=== PATIENT | female | born 1995 ===

== ENCOUNTER 2022-12-29 14:44 | Inpatient (IN) | payer BC ==
[2022-12-29] MEDS ORDERED: Tranexamic Acid 1,000 MG in Sodium Chloride 0.9% 100 ML IV PRN (20:32)
[2022-12-29] MEDS ORDERED: Methylergonovine 0.2 MG/1 ML Amp IM PRN (20:32)
[2022-12-29] MEDS ORDERED: Sodium Chloride 0.9% 20 ML SDV IV PRN (20:32)
[2022-12-29] MEDS ORDERED: Lidocaine 1% 50 ML MDV INJECT PRN (20:32)
[2022-12-29] MEDS ORDERED: Sodium Chloride 0.9% 2.5 ML Syringe FLUSH PRN (20:32)
[2022-12-29] MEDS ORDERED: Misoprostol 200 MCG Tab PO PRN (20:32)
[2022-12-29] MEDS ORDERED: Ondansetron 4 MG/2 ML SDV IVPUSH PRN (20:32)
[2022-12-29] MEDS ORDERED: Water For Irrigation,Sterile 1,000 ML Container IRR PRN (20:32)
[2022-12-29] MEDS ORDERED: Sodium Chloride 0.9% 10 ML Syringe FLUSH PRN (20:32)
[2022-12-29] MEDS ORDERED: Butorphanol 1 MG/ML SDV IVPUSH PRN (20:32)
[2022-12-29] MEDS ORDERED: Carboprost Tromethamine 250 MCG/1 ML Amp IM PRN (20:32)
[2022-12-29] MEDS ORDERED: Oxytocin/0.9 % Sodium Chloride 30 UNIT/500 ML BAG IV SCH (20:45)
[2022-12-29] MEDS: Lactated Ringers 1,000 ML IV SCH (20:46)
[2022-12-29] MEDS ORDERED: Ampicillin 2 GM in Sodium Chloride 0.9% 100 ML IV ONE (21:00)
[2022-12-30] MEDS: Ampicillin 1 GM in Sodium Chloride 0.9% 50 ML IV SCH ×2 (01:24→05:27)
[2022-12-30] MEDS: Lactated Ringers 1,000 ML IV SCH ×2 (03:46→07:00)
[2022-12-30] MEDS ORDERED: Ropivacaine/PF 400 MG/200 ML PCA ONE (03:52)
[2022-12-30] MEDS ORDERED: ePHEDrine 50 MG/ML SDV IVPUSH PRN (04:09)
[2022-12-30] MEDS ORDERED: Phenylephrine HCl 0.5 MG/5 ML AMP IVPUSH PRN (04:09)
[2022-12-30] MEDS ORDERED: Ropivacaine HCl/PF 400 MG in Premix Bag 1 BAG EPIDUR SCH (04:15)
[2022-12-30] MEDS ORDERED: Witch Hazel Medicated Pads 40/Jar TOP PRN (07:36)
[2022-12-30] MEDS ORDERED: Lanolin 100% Cream 7 GM Tube TOP PRN (07:36)
[2022-12-30] MEDS ORDERED: Bisacodyl 10 MG Supp RECTAL PRN (07:36)
[2022-12-30] MEDS ORDERED: Ibuprofen 400 MG Tab PO PRN (07:36)
[2022-12-30] MEDS ORDERED: Docusate Sodium 100 MG Cap PO PRN (07:36)
[2022-12-30] MEDS ORDERED: Ibuprofen 800 MG Tab PO PRN (07:36)
[2022-12-30] MEDS ORDERED: Benzocaine/Menthol 20%-0.5% Spray 78 GM Cannister TOP PRN (07:36)
[2022-12-30] MEDS ORDERED: Acetaminophen 500 MG Tab PO PRN ×2 (07:36)
== END 2023-01-01 14:20 | disposition home or self-care (01) | DRG 560 ==
LOC: MW.OBCHECK 14:44 → MW.OB 20:32 → OBSVTOIN 12-30 07:14 → MW.OB 12-30 11:24
PROVIDERS: ADMIT Obstetrics & Gynecology Obstetrics; ATTEND Obstetrics & Gynecology Obstetrics
PROC: 10E0XZZ Delivery of Products of Conception, External Approach (ICD-10-PCS; principal; 2022-12-30)
PROC: 3E0R3BZ Introduction of Anesthetic Agent into Spinal Canal, Percutaneous Approach (ICD-10-PCS; 2022-12-30)
PROC: 00HU33Z Insertion of Infusion Device into Spinal Canal, Percutaneous Approach (ICD-10-PCS; 2022-12-30)
DX: O24.12 Pre-existing type 2 diabetes mellitus, in childbirth (principal); O99.284 Endocrine, nutritional and metabolic diseases complicating childbirth; O99.824 Streptococcus B carrier state complicating childbirth; E03.9 Hypothyroidism, unspecified; O70.0 First degree perineal laceration during delivery; O99.214 Obesity complicating childbirth; E66.01 Morbid (severe) obesity due to excess calories; Z3A.39 39 weeks gestation of pregnancy; Z37.0 Single live birth; Z79.84 Long term (current) use of oral hypoglycemic drugs; Z79.890 Hormone replacement therapy; Z79.899 Other long term (current) drug therapy
CPT/HCPCS: 36415; 51702; 59025; 59409; 82947; 85014; 85018; 85027; 86592; 86850; 86900; 86901; A9270-GY; J0290; J2590; J2795; J7050; J7120; U0002